=== PATIENT | female | born 1945 | race Caucasian/White ===

== ENCOUNTER 2017-02-17 10:56 | Outpatient (CLI) | payer MEDICARE, OTHER ==
--- NOTE | 2017-02-17 11:42 | XRAY Report ---
TWO-VIEW CHEST: 02/17/2017 CLINICAL INDICATION: Persistent cough. COMPARISON: 06/17/2015 FINDINGS: Frontal and lateral views of the chest demonstrate a normal cardiac silhouette. There are infiltrates in the right upper and middle lobes. No effusion or pneumothorax is present. IMPRESSION: RIGHT UPPER AND MIDDLE LOBE INFILTRATES. JOB #: [id number] EXT JOB #:[id number]
== END 2017-02-17 10:57 | disposition home or self-care (01) ==
LOC: DI 10:56
PROVIDERS: ATTEND Internal Medicine
DX: R91.8 Other nonspecific abnormal finding of lung field (principal)
CPT/HCPCS: 71020

== ENCOUNTER 2017-09-03 07:11 | Day surgery (SDC) | payer MEDICARE, OTHER ==
[2017-09-03] MEDS ORDERED: LACTATED RINGERS 1,000 ML IV ONE (07:22)
[2017-09-03] MEDS ORDERED: MIDAZOLAM 2 MG/2 ML VIAL IVP ONE (07:52)
[2017-09-03] MEDS ORDERED: fentaNYL 100 MCG/2 ML VIAL IVP ONE (07:52)
[2017-09-03 09:14] VITALS: BP 105/55
== END 2017-09-03 07:12 | disposition home or self-care (01) ==
LOC: SDS 07:11
PROVIDERS: ATTEND Surgery
PROC: 0DBP8ZX Excision of Rectum, Via Natural or Artificial Opening Endoscopic, Diagnostic (ICD-10-PCS; principal; 2017-09-03 08:15)
DX: Z12.11 Encounter for screening for malignant neoplasm of colon (principal); Z80.0 Family history of malignant neoplasm of digestive organs; K57.30 Diverticulosis of large intestine without perforation or abscess without bleeding; K62.9 Disease of anus and rectum, unspecified; K64.8 Other hemorrhoids; K21.9 Gastro-esophageal reflux disease without esophagitis
CPT/HCPCS: 45380; J7120

== ENCOUNTER 2018-01-13 08:41 | Outpatient (CLI) | payer MEDICARE, OTHER ==
[2018-01-13 09:34] LABS: VBG PH 7.363 (7.31-7.41)
[2018-01-13 10:03] LABS: THYROID STIMULATING HORMONE 2.08 uIU/mL (0.34-5.60)
== END 2018-01-13 08:42 | disposition home or self-care (01) ==
LOC: LAB 08:41
PROVIDERS: ATTEND Internal Medicine
DX: E03.9 Hypothyroidism, unspecified (principal); E83.52 Hypercalcemia; Z86.39 Personal history of other endocrine, nutritional and metabolic disease
CPT/HCPCS: 36415; 82330; 83970; 84443

== ENCOUNTER 2018-02-17 11:14 | Outpatient (CLI) | payer MEDICARE, OTHER ==
--- NOTE | 2018-02-17 11:53 | XRAY Report ---
Procedure Date: 02/17/2018 Accession Number: [id number] / [id number] Procedure: XR - Chest 2 View X-Ray CPT Code: 41214 FULL RESULT: EXAM: Chest 2 View X-Ray DATE: 02/17/2018 11:30 AM CLINICAL HISTORY: COUGH COMPARISON: 02/17/2017. TECHNIQUE: 2 views. FINDINGS: Lungs/Pleura: No focal opacities evident. Previously seen fluid in right horizontal fissure essentially has resolved. There is no pneumothorax or pleural effusion. Mediastinum: Heart and mediastinal contours are unremarkable. Other: None. IMPRESSION: Normal 2-view chest radiography. [facility]
== END 2018-02-17 11:15 | disposition home or self-care (01) ==
LOC: DI 11:14
PROVIDERS: ATTEND Internal Medicine
DX: R05 Cough (principal)
CPT/HCPCS: 71046

== ENCOUNTER 2018-08-25 15:21 | Outpatient (CLI) | payer MEDICARE, OTHER ==
--- NOTE | 2018-08-26 08:21 | Mammography Report ---
Reason: SCREENING MAMMO Procedure Date: 08/25/2018 Accession Number: [id number] / [id number] Procedure: DARRYL - Screening Mammo w/Pilo CPT Code: FULL RESULT: EXAM: Screening Mammo w/Pilo DATE: 08/25/2018 3:48 PM CLINICAL HISTORY: Screening encounter. No reported risk factors. TECHNIQUE: Bilateral CC and MLO views were obtained. COMPARISON: 07/10/2016 through 09/06/2010. FINDINGS: The breasts demonstrate diffuse fatty replacement bilaterally. No suspicious masses, clustered microcalcifications, or regions of architectural distortion are identified. IMPRESSION: Negative examination RECOMMENDATION: Routine annual screening unless otherwise clinically indicated. BIRADS CATEGORY 1: Negative STANDARD QUALIFYING STATEMENTS: 1. This examination was not reviewed with the aid of Computer-Aided Detection (CAD). 2. A negative or benign imaging report should not preclude biopsy if clinically suspicious findings are present. 3. Dense breasts may obscure an underlying neoplasm. 4. This examination was reviewed with the aid of 3D breast imaging (tomosynthesis).
== END 2018-08-25 15:22 | disposition home or self-care (01) ==
LOC: DI 15:21
PROVIDERS: ATTEND Internal Medicine
DX: Z12.31 Encounter for screening mammogram for malignant neoplasm of breast (principal)
CPT/HCPCS: 77063; 77067

== ENCOUNTER 2019-07-11 10:13 | Day surgery (SDC) | payer MEDICARE, OTHER ==
[2019-07-11] MEDS ORDERED: fentaNYL 250 MCG/5 ML VIAL IVP ONE (10:14)
[2019-07-11] MEDS ORDERED: MIDAZOLAM 2 MG/2 ML VIAL IVP ONE (10:14)
[2019-07-11] MEDS ORDERED: LACTATED RINGERS 1,000 ML IV ONE (10:35)
[2019-07-11] MEDS ORDERED: LIDO GARGLE 30 ML BOTTLE ONE (11:07)
[2019-07-11] MEDS ORDERED: LIDO GARGLE 30 ML BOTTLE PO ONE (11:59)
[2019-07-11 13:23] VITALS: BP 105/56
== END 2019-07-11 10:14 | disposition home or self-care (01) ==
LOC: SDS 10:13
PROVIDERS: ATTEND Internal Medicine Gastroenterology
PROC: 0DB78ZX Excision of Stomach, Pylorus, Via Natural or Artificial Opening Endoscopic, Diagnostic (ICD-10-PCS; 2019-07-11)
PROC: 0DB58ZX Excision of Esophagus, Via Natural or Artificial Opening Endoscopic, Diagnostic (ICD-10-PCS; principal; 2019-07-11 11:45)
DX: K21.0 Gastro-esophageal reflux disease with esophagitis (principal); K29.50 Unspecified chronic gastritis without bleeding; K44.9 Diaphragmatic hernia without obstruction or gangrene; Z79.899 Other long term (current) drug therapy; Z80.0 Family history of malignant neoplasm of digestive organs; Z79.82 Long term (current) use of aspirin; Z72.89 Other problems related to lifestyle
CPT/HCPCS: 43239; A9270; J3010; J7120

== ENCOUNTER 2020-01-26 21:52 | Outpatient (CLI) | payer MEDICARE, OTHER | END 2020-01-26 23:59 | disposition EMS.NT | LOC: EMS 21:52 | PROVIDERS: ATTEND Surgery | DX: R42 Dizziness and giddiness (principal) ==

== ENCOUNTER 2020-08-15 14:24 | Outpatient (CLI) | payer MEDICARE, OTHER ==
--- NOTE | 2020-08-15 16:31 | DEXA Report ---
PROCEDURE: Dexa Spine and/or Hip INDICATIONS: OSTEOPENIA TECHNIQUE: Dual energy x-ray absorptiometry (DXA) was performed on a [employer] System. Regions measur ed are the AP Spine, femoral neck, and if needed forearm. COMPARISON: Priors are not available for comparison secondary to different measuring techniques. FINDINGS: Lumbar Spine: Bone Mineral Density 1.044 g/cm/cm,T score -1.1, minimal osteopenia Left Hip: Bone Mineral Density 0.746 g/cm/cm,T score -2.1, moderate to severe osteopenia Left Femoral Neck: Bone Mineral Density 0.715 g/cm/cm, T score -2.3, severe osteopenia (T score greater or equal to -1.0: NORMAL) (T score from -1.1 to -2.4: OSTEOPENIA) (T score less than or equal to -2.5 to: OSTEOPOROSIS) Impression: Severe osteopenia within the left femoral neck. Patients with diagnosis of osteoporosis or osteopenia should have regular bone mineral density assess ment. For those eligible for Medicare, routine testing is allowed once every 2 years. Testing frequ ency can be increased for patients who have rapidly progressing disease or for those who are receivin g medical therapy to restore bone mass. Reviewed by: Giselle Hamilton MD on 08/15/2020 4:29 PM PST Approved by: Giselle Hamilton MD on 08/15/2020 4:29 PM PST Station ID: [id number]
== END 2020-08-15 14:25 | disposition home or self-care (01) ==
LOC: DI 14:24
PROVIDERS: ATTEND Internal Medicine
DX: M85.89 Other specified disorders of bone density and structure, multiple sites (principal)

== ENCOUNTER 2020-09-20 14:47 | Outpatient (CLI) | payer MEDICARE, OTHER ==
--- NOTE | 2020-09-21 13:00 | Mammography Report ---
BILATERAL DIGITAL SCREENING MAMMOGRAM 3D/2D: 09/20/2020 CLINICAL: Routine screening. Comparison is made to exams dated: 08/25/2018 mammogram, 07/10/2016 mammogram, 05/23/2014 mammogram, 09/29/2011 mammogram, 09/06/2010 mammogram, and 09/05/2009 mammogram - [facility]. The tissue of both breasts is predominantly fatty. No significant masses, calcifications, or other findings are seen in either breast. There has been no significant interval change. IMPRESSION: NEGATIVE There is no mammographic evidence of malignancy. A 1 year screening mammogram is recommended. This exam was interpreted at Station ID: [id number]. NOTE: For mammograms, a report in lay terms will be sent to the patient. Approximately 15% of breast malignancies will not be visualized mammographically. In the management of a palpable breast mass, a negative mammogram must not discourage biopsy of a clinically suspicious lesion. Electronically Signed By: Juan Diego Cardona acr/penrad:09/20/2020 17:09:28 ACR BI-RADS Category 1: Negative 3341F PARENCHYMAL PATTERN: (F) - The breast(s) demonstrate(s) diffuse fatty replacement. BI-RADS CATEGORY: (1) - 1 RECOMMENDATION: (ANNUAL) - Recommend routine annual screening mammography. [id number] 1 year screening LATERALITY: (B)
== END 2020-09-20 14:48 | disposition home or self-care (01) ==
LOC: DI 14:47
PROVIDERS: ATTEND Internal Medicine
DX: Z12.31 Encounter for screening mammogram for malignant neoplasm of breast (principal)

== ENCOUNTER 2021-08-26 08:00 | Outpatient (CLI) | payer MEDICARE, OTHER ==
[2021-08-26 16:52] LABS: BASOPHILS # (AUTO) 0.1 10^3/uL (0.0-0.1); BASOPHILS % (AUTO) 1.2 %; EOSINOPHILS # (AUTO) 0.1 10^3/uL (0.0-0.7); EOSINOPHILS % (AUTO) 1.4 %; HGB - HEMOGLOBIN 12.9 g/dL (12.0-16.0); LYMPHOCYTES # (AUTO) 1.1 10^3/uL (1.5-3.5); MEAN CORPUSCULAR HEMOGLOBIN 30.4 pg (27.0-31.0); MEAN CORPUSCULAR HGB CONC 33.1 g/dL (32.0-36.0); MEAN CORPUSCULAR VOLUME 91.8 fL (81.0-99.0); MEAN PLATELET VOLUME 10.4 fL (7.9-10.8); MONOCYTES # (AUTO) 0.4 10^3/uL (0.0-1.0); MONOCYTES % (AUTO) 7.5 %; NEUTROPHILS # (AUTO) 3.6 10^3/uL (1.5-6.6); NEUTROPHILS % (AUTO) 68.7 %; PLT - PLATELET COUNT 235 10^3/uL (130-450); RED BLOOD COUNT 4.25 10^6/uL (4.20-5.40); RED CELL DISTRIBUTION WIDTH 12.8 % (12.0-15.0); WHITE BLOOD COUNT 5.2 x10^3/uL (4.8-10.8)
[2021-08-26 17:07] LABS: ALBUMIN 3.9 g/dL (3.2-5.5); ALBUMIN/GLOBULIN RATIO 1.4 (1.0-2.2); ALKALINE PHOSPHATASE 59 IU/L (42-121); ALT ALANINE AMINOTRANSFERASE 13 IU/L (10-60); AST ASPARTATE AMINOTRANSFERASE 20 IU/L (10-42); BILIRUBIN,TOTAL 0.6 mg/dL (0.2-1.0); BUN - BLOOD UREA NITROGEN 17 mg/dL (6-20); CALCIUM 9.9 mg/dL (8.5-10.3); CARBON DIOXIDE - CO2 28 mmol/L (21-32); CHLORIDE 100 mmol/L (101-111); CHOLESTEROL 221 mg/dL; CREATININE 0.9 mg/dL (0.4-1.0); GFR - MDRD 61 (>89); GLUCOSE 102 mg/dL (70-100); HDL CHOLESTEROL 73 mg/dL; LDL CHOLESTEROL,CALCULATED 128 mg/dL; LDL/HDL RATIO 1.8 (<4.4); POTASSIUM 4.8 mmol/L (3.5-5.0); SODIUM 136 mmol/L (135-145); TOTAL PROTEIN 6.6 g/dL (6.7-8.2); TRIGLYCERIDES 100 mg/dL; VLDL CHOLESTEROL 20 mg/dL
[2021-08-26 17:19] LABS: THYROID STIMULATING HORMONE 3.12 uIU/mL (0.34-5.60)
[2021-08-26 17:20] LABS: FREE T3 3.02 pg/mL (2.5-3.9)
[2021-08-26 17:21] LABS: FREE T4 (FREE THYROXINE) 0.54 ng/dL (0.58-1.64)
[2021-08-26 19:12] LABS: ESTIMATED AVERAGE GLUCOSE 120 mg/dL (70-100); HEMOGLOBIN A1c% 5.8 % (4.27-6.07)
== END 2021-08-26 23:59 ==
LOC: LAB 08:00
PROVIDERS: ATTEND Internal Medicine
DX: Z00.00 Encounter for general adult medical examination without abnormal findings (principal); R10.9 Unspecified abdominal pain; F41.9 Anxiety disorder, unspecified; C44.310 Basal cell carcinoma of skin of unspecified parts of face; F32.A Depression, unspecified; Z80.0 Family history of malignant neoplasm of digestive organs; R53.83 Other fatigue; K21.9 Gastro-esophageal reflux disease without esophagitis; M25.559 Pain in unspecified hip; Z86.39 Personal history of other endocrine, nutritional and metabolic disease; E83.52 Hypercalcemia; E03.9 Hypothyroidism, unspecified; R73.01 Impaired fasting glucose; R42 Dizziness and giddiness; R41.3 Other amnesia; R25.2 Cramp and spasm; M85.80 Other specified disorders of bone density and structure, unspecified site; R00.2 Palpitations; J30.2 Other seasonal allergic rhinitis; M25.519 Pain in unspecified shoulder; R00.0 Tachycardia, unspecified; Z79.899 Other long term (current) drug therapy
CPT/HCPCS: 36415; 80053; 80061; 82306; 83036; 83721; 84439; 84443; 84481; 85025

== ENCOUNTER 2022-07-24 08:00 | Outpatient (CLI) | payer MEDICARE, OTHER ==
[2022-07-24 16:20] LABS: BASOPHILS # (AUTO) 0.1 10^3/uL (0.0-0.1); EOSINOPHILS # (AUTO) 0.2 10^3/uL (0.0-0.7); EOSINOPHILS % (AUTO) 3.7 %; HCT - HEMATOCRIT 39.7 % (37.0-47.0); HGB - HEMOGLOBIN 13.3 g/dL (12.0-16.0); LYMPHOCYTES # (AUTO) 0.8 10^3/uL (1.5-3.5); LYMPHOCYTES % (AUTO) 17.1 %; MEAN CORPUSCULAR HEMOGLOBIN 29.9 pg (27.0-31.0); MEAN CORPUSCULAR HGB CONC 33.5 g/dL (32.0-36.0); MEAN CORPUSCULAR VOLUME 89.2 fL (81.0-99.0); MEAN PLATELET VOLUME 9.4 fL (7.9-10.8); MONOCYTES # (AUTO) 0.6 10^3/uL (0.0-1.0); MONOCYTES % (AUTO) 11.5 %; NEUTROPHILS # (AUTO) 3.2 10^3/uL (1.5-6.6); NEUTROPHILS % (AUTO) 66.3 %; PLT - PLATELET COUNT 275 10^3/uL (130-450); RED BLOOD COUNT 4.45 10^6/uL (4.20-5.40); RED CELL DISTRIBUTION WIDTH 12.5 % (12.0-15.0); WHITE BLOOD COUNT 4.9 x10^3/uL (4.8-10.8)
[2022-07-24 16:32] LABS: ALBUMIN 4.1 g/dL (3.2-5.5); ALBUMIN/GLOBULIN RATIO 1.3 (1.0-2.2); BILIRUBIN,TOTAL 0.9 mg/dL (0.2-1.0); CALCIUM 10.2 mg/dL (8.5-10.3); CREATININE 0.9 mg/dL (0.4-1.0); POTASSIUM 4.1 mmol/L (3.5-5.0); TOTAL PROTEIN 7.3 g/dL (6.7-8.2)
[2022-07-24 16:46] LABS: THYROID STIMULATING HORMONE 4.24 uIU/mL (0.34-5.60)
[2022-07-24 16:48] LABS: FREE T4 (FREE THYROXINE) 0.56 ng/dL (0.58-1.64)
[2022-07-24 16:49] LABS: FREE T3 2.7 pg/mL (2.5-3.9)
== END 2022-07-24 23:59 | disposition home or self-care (01) ==
LOC: LAB.R 08:00
PROVIDERS: ATTEND Internal Medicine
DX: E03.9 Hypothyroidism, unspecified (principal); R10.9 Unspecified abdominal pain; R63.0 Anorexia; R05.3 Chronic cough; R06.09 Other forms of dyspnea; R53.83 Other fatigue
CPT/HCPCS: 80053; 82150; 82607; 83880; 84439; 84443; 84481; 85025

== ENCOUNTER 2022-08-05 13:36 | Outpatient (CLI) | payer MEDICARE, OTHER ==
--- NOTE | 2022-08-05 17:07 | XRAY Report ---
PROCEDURE: Chest 2 View X-Ray INDICATIONS: COUGH TECHNIQUE: 2 views of the chest were acquired. COMPARISON: Chest x-ray of 02/17/2019 FINDINGS: Surgical changes and devices: None. Lungs and pleura: No pleural effusions or pneumothorax. Lungs are clear. Mediastinum: Mediastinal contours are normal. Heart size is normal. Bones and chest wall: No suspicious bony abnormalities. Soft tissues appear unremarkable. IMPRESSION: No acute pulmonary process. Reviewed by: Giselle Hamilton MD on 08/05/2022 5:05 PM [facility] Approved by: Giselle Hamilton MD on 08/05/2022 5:05 PM [facility] Station ID: [id number]
== END 2022-08-05 13:37 | disposition home or self-care (01) ==
LOC: DI 13:36
PROVIDERS: ATTEND Internal Medicine
DX: R05.1 Acute cough (principal)

== ENCOUNTER 2022-08-21 15:40 | Outpatient (CLI) | payer MEDICARE, OTHER ==
--- NOTE | 2022-08-22 10:02 | Ultrasound Report ---
PROCEDURE: Head or Neck Soft Tissue INDICATIONS: THYROID NODULES TECHNIQUE: Real-time scanning was performed of the thyroid gland, with image documentation. COMPARISON: None FINDINGS: Right: Thyroid lobe measures 3.3 x 0.8 x 0.6 cm, and is homogeneous in echotexture. Left: Thyroid lobe measures 3.2 x 0.5 x 0.7 cm, and is homogenous in echotexture. Isthmus: 1 mm thick. No discrete thyroid nodule is seen. IMPRESSION: Small thyroid gland. No discrete thyroid nodule. No neck soft tissue lymphadenopathy. ACR TI-RADS definitions and recommendations: TI-RADS 1 (benign): 0 points. FNA not needed. TI-RADS 2 (not suspicious): 2 points. FNA not needed. TI-RADS 3 (mildly suspicious): 3 points. "FNA if 2.5 cm or larger, follow up if 1.5 cm or larger (at 1, 3, and 5 years). TI-RADS 4 (moderately suspicious): 4-6 points. "FNA if 1.5 cm or larger, follow up if 1 cm or larger (at 1, 2, 3, and 5 years). TI-RADS 5 (highly suspicious): 7 points or more. "FNA if 1 cm or larger, follow up if 0.5 cm or larger (every year for 5 years). Reviewed by: Alexis Gonzalez MD on 08/22/2022 10:01 AM PST Approved by: Alexis Gonzalez MD on 08/22/2022 10:01 AM PST Station ID: [id number]
== END 2022-08-21 15:41 | disposition home or self-care (01) ==
LOC: DI 15:40
PROVIDERS: ATTEND Internal Medicine
DX: E04.2 Nontoxic multinodular goiter (principal)

== ENCOUNTER 2022-09-19 13:45 | Outpatient (CLI) | payer MEDICARE, OTHER ==
--- NOTE | 2022-09-22 09:22 | Mammography Report ---
BILATERAL DIGITAL SCREENING MAMMOGRAM 3D/2D: 09/19/2022 CLINICAL: Routine screening. Comparison is made to exams dated: 09/20/2020 mammogram, 08/25/2018 mammogram, 07/10/2016 mammogram, a nd 05/23/2014 mammogram - [facility]. There are scattered areas of fibroglandular density in both breasts (category b / 25%-50% glandular t issue). No significant masses, calcifications, or other findings are seen in either breast. There has been no significant interval change. IMPRESSION: NEGATIVE There is no mammographic evidence of malignancy. A 1 year screening mammogram is recommended. Based on the Tyrer Cuzick model (a risk assessment model) the patients lifetime risk is 3.3% and her 10 year risk is 0.0%. According to the ACR, ACS, and NCCN guidelines, an annual breast MRI exam miriam g with mammogram is recommended if the patients lifetime risk is 20% or greater. This exam was interpreted at Station ID: [id number]. NOTE: For mammograms, a report in lay terms will be sent to the patient. Approximately 15% of breast malignancies will not be visualized mammographically. In the management of a palpable breast mass, a negative mammogram must not discourage biopsy of a clinically suspicious lesion. Electronically Signed By: Ger scott/tenzin:09/19/2022 18:32:27 letter sent: No_Letter ACR BI-RADS Category 1: Negative 3341F PARENCHYMAL PATTERN: (A) - The breast(s) demonstrate(s) scattered fibroglandular densities. BI-RADS CATEGORY: (1) - 1 RECOMMENDATION: (ANNUAL) - Recommend routine annual screening mammography. [id number] 1 year screening LATERALITY: (B)
== END 2022-09-19 13:46 | disposition home or self-care (01) ==
LOC: DI 13:45
PROVIDERS: ATTEND Internal Medicine
DX: Z12.31 Encounter for screening mammogram for malignant neoplasm of breast (principal)

== ENCOUNTER 2023-10-12 14:24 | Outpatient (CLI) | payer MEDICARE, OTHER ==
--- NOTE | 2023-10-12 14:58 | DEXA Report ---
PROCEDURE: Dexa Spine and/or Hip INDICATIONS: POST MENOPAUSAL TECHNIQUE: Dual energy x-ray absorptiometry (DXA) was performed on a [employer] System. Regions measur ed are the AP Spine, femoral neck, and if needed forearm. COMPARISON: DEXA 08/15/2020 FINDINGS: Lumbar Spine: Bone Mineral Density: 1.061 g/cm/cm,T score: -1.0, compared to -1.1. Left Femoral Neck: Bone Mineral Density: 0.683 g/cm/cm, T score: -2.6, compared to -2.3. Left Hip: Bone Mineral Density: 0.696 g/cm/cm,T score: -2.5, compared to -2.1. 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 Patients with diagnosis of osteoporosis or osteopenia should have regular bone mineral density assess ment. For those eligible for Medicare, routine testing is allowed once every 2 years. Testing frequ ency can be increased for patients who have rapidly progressing disease or for those who are receivin g medical therapy to restore bone mass. Reviewed by: Giselle Hamilton MD on 10/12/2023 2:57 PM PDT Approved by: Giselle Hamilton MD on 10/12/2023 2:57 PM PDT Station ID: [id number]
== END 2023-10-12 14:25 | disposition home or self-care (01) ==
LOC: DI 14:24
PROVIDERS: ATTEND Internal Medicine
DX: Z78.0 Asymptomatic menopausal state (principal); M81.0 Age-related osteoporosis without current pathological fracture

== ENCOUNTER 2025-06-09 02:49 | Inpatient (IN) ==
--- NOTE | 2025-06-09 03:03 | ED Physician Documentation ---
History of Present Illness Stated complaint Stated Complaint: PALPITATIONS Chief complaint Chief Complaint: Cardiac History obtained from History obtained from: Patient and EMS Additonal information Additional information: 80yF with pmh hypothyroidism, depression p/w 1 week of cough and progressive soa, found to have tachycardia to 180s by ems with concern for possible afib. she received 15mg iv cardizem in the field as well as 700 cc ivf prior to arrival. no fever, cp, n/v Meds/Allgy Home Medications Ambulatory Orders Medication Instructions Recorded Confirmed aspirin 81 mg chewable tablet 81 mg PO DAILY 06/17/15 07/08/19 citalopram 10 mg tablet 20 mg PO DAILY 06/17/1506/26 thyroid (pork) 180 mg tablet 180 mg PO DAILY 06/17/15 07/08/19 ([facility]) Allergies Allergies Allergy/AdvReac Type Severity Reaction Status Date / Time No Known Drug Allergies Allergy Verified 06/09/25 02:57 PFSH Active Problems All Active Problems (Updated 06/09/25 @ 05:05 by Edita Vee MD) Tachycardia (Acute) Hypoxia (Acute) Pneumonia (Acute) Sepsis (Acute) Pneumonia (Acute) Social History Social History Do you dip or chew tobacco?: No Do you feel safe in your home environment?: Yes History of physical, verbal, emotional, or financial abuse?: No ETOH Use: Frequency: Occasional POLST Patient has POLST: No Exam Exam Vital Signs: Vital Signs x48h Temp Pulse Resp BP Pulse Ox 06/09/25 04:27 83 103/41 L 92 06/09/25 04:12 86 117/47 L 91 L 06/09/25 03:57 84 121/50 L 92 06/09/25 02:52 37 C 86 21 119/49 L 94 Constitutional no apparent distress and average body habitus elderly appearing HENMT normocephalic, head/scalp atraumatic and oropharynx normal Eyes PERRL and EOMs intact bilaterally Neck/C-Spine visual inspection normal Chest inspection of chest normal Respiratory diminished breath sounds R lung base Cardiovascular normal heart rate noted and regular rhythm noted Gastrointestinal abdomen normal to inspection, abdomen soft to palpation and nontender to palpation Extremities normal to inspection Results Vitals Vitals: Vital Signs - 24 hr 06/09/25 02:52 06/09/25 03:57 06/09/25 04:12 Temperature 37 C Pulse Rate 86 84 86 Respiratory Rate 21 Blood Pressure 119/49 L 121/50 L 117/47 L O2 Saturation 94 92 91 L O2 Source Room air Pain Intensity 0 06/09/25 04:27 Temperature Pulse Rate 83 Respiratory Rate Blood Pressure 103/41 L O2 Saturation 92 O2 Source Room air Pain Intensity Oxygen O2 Source Room air EKG (time done) 0254: EKG releavant findings:: EKG personally interpreted by author of this note. Relevant findings are: Rate: Rate (enter#) (89) Rhythm: NSR and Other (PVCs) [place]: Normal Intervals: Normal MD QRS: QRS normal Ischemia: Normal ST segments Labs Labs: Laboratory Tests 06/09/25 03:08 WBC 9.7 RBC 3.77 L Hgb 11.3 L Hct 34.4 L MCV 91.2 MCH 30.0 MCHC 32.8 RDW 12.5 Plt Count 150 MPV 9.6 Neut # (Auto) 7.7 H Lymph # (Auto) 0.9 L Eddy # (Auto) 0.9 Eos # (Auto) 0.1 Baso # (Auto) 0.0 Absolute Nucleated RBC 0.00 Nucleated RBC % 0.0 Sodium 128 L Potassium 3.6 Chloride 97 L Carbon Dioxide 19 L Anion Gap 12.0 BUN 9 Creatinine 0.7 Estimated GFR (MDRD) 81 L Glucose 126 H Calcium 8.3 L Magnesium 1.6 L Total Bilirubin 0.6 AST 22 ALT 11 Alkaline Phosphatase 53 Total Protein 6.0 L Albumin 3.5 Globulin 2.5 Albumin/Globulin Ratio 1.4 Lipase < 10 L PD Medical Decision Making ED course ED course: 80yF p/w sepsis 2/2 RLL pneumonia, found to be hypoxic with borderline low blood pressures 103/41. 30cc / kg ivf bolus provided as well as empiric antibiotics. note that HR was 180s in the field and ems gave 15mg cardizem for possible new onset afib/aflutter. Prehospital rhythm strips have been uploaded to chart. EKG is nsr in the ED. d/w Dr. Ling for admission Discharge Plan Discharge Patient Disposition: [facility] DC/Xfer Condition: Fair Clinical Impression: Pneumonia, Hypoxia, Tachycardia Prescriptions: No Action citalopram 10 MG tablet 20 mg PO DAILY aspirin 81 MG tablet,chewable 81 mg PO DAILY thyroid (pork) [[facility]] 180 MG tablet 180 mg PO DAILY Print Language: [place]
[2025-06-09 03:13] LABS: HCT - HEMATOCRIT 34.4 % (37.0-47.0); HGB - HEMOGLOBIN 11.3 g/dL (12.0-16.0); MEAN PLATELET VOLUME 9.6 fL (7.9-10.8); NRBC ABSOLUTE COUNT (AUTO) 0.00 x10^3/uL; NUCLEATED RED BLOOD CELLS AUTO 0.0 /100WBC; PLT - PLATELET COUNT 150 10^3/uL (130-450); RED CELL DISTRIBUTION WIDTH 12.5 % (12.0-15.0)
[2025-06-09 03:30] LABS: ALT ALANINE AMINOTRANSFERASE 11 IU/L (10-60); AST ASPARTATE AMINOTRANSFERASE 22 IU/L (10-42); BUN - BLOOD UREA NITROGEN 9 mg/dL (6-20); CARBON DIOXIDE - CO2 19 mmol/L (21-32); CREATININE 0.7 mg/dL (0.6-1.3); GFR - MDRD 81 (>89)
[2025-06-09] MEDS ORDERED: cefTRIAXone 1 GM VIAL ONE (05:01)
[2025-06-09] MEDS: SODIUM CHLORIDE 0.9% 2,121 ML IV STA (05:21)
[2025-06-09] MEDS: AZITHROMYCIN INJ 500 MG in SODIUM CHLORIDE 0.9% 250 ML IV STA (05:24)
[2025-06-09] MEDS: cefTRIAXone 1 GM in SODIUM CHLORIDE 0.9% MINIBAG 100 ML IV STA (05:24)
[2025-06-09] MEDS: MAGNESIUM SULFATE 1 GM/2 ML VIAL IVP STA (05:40)
--- OUTSIDE RECORDS SUMMARY | 2025-06-09 05:43 | EXTERNAL MEDICAL SUMMARY RPT | Continuity of Care Document ---
Author Organization [facility] Address [address] [place] [id number] Phone Problems date description facility 2025-06-09 05:05 Sepsis, unspecified organism [facility] 2025-06-09 05:05 Pneumonia, unspecified organism [facility] Results/Labs test date facility value unit notes Result panel 1 LIPASE 2025-06-09 03:08 [facility] < 10 u/l As of January 2023 testing method has changed, this may include reference ranges. NUCLEATED RED BLOOD CELLS AUTO 2025-06-09 03:08 [facility] 0.0 /100wbc (missing) BASOPHILS # (AUTO) 2025-06-09 03:08 [facility] 0.0 10 3/ul (missing) NRBC ABSOLUTE COUNT (AUTO) 2025-06-09 03:08 [facility] 0.00 x10 3/ul (missing) EOSINOPHILS # (AUTO) 2025-06-09 03:08 [facility] 0.1 10 3/ul (missing) BILIRUBIN,TOTAL 2025-06-09 03:08 [facility] 0.6 mg /dl As of January 2023 testing method has changed, this may include reference ranges. CREATININE 2025-06-09 03:08 [facility] 0.7 mg/dl As of January 2023 testing method has changed, this may include reference ranges. MONOCYTES # (AUTO) 2025-06-09 03:08 [facility] 0.9 10 3/ul (missing) LYMPHOCYTES # (AUTO) 2025-06-09 03:08 [facility] 0.9 10 3/ul (missing) ALBUMIN/GLOBULIN RATIO 2025-06-09 03:08 [facility] 1.4 (missing) (missing) MAGNESIUM 2025-06-09 03:08 [facility] 1.6 mg/dl As of January 2023 testing method has changed, this may include reference ranges. ALT ALANINE AMINOTRANSFERASE 2025-06-09 03:08 [facility] 11 iu/l As of January 2023 testing method has changed, this may include reference ranges. HGB - HEMOGLOBIN 2025-06-09 03:08 [facility] 11.3 g /dl (missing) ANION GAP 2025-06-09 03:08 [facility] 12.0 (missing ) (missing) RED CELL DISTRIBUTION WIDTH 2025-06-09 03:08 [facility] 12.5 % (missing) GLUCOSE 2025-06-09 03:08 [facility] 126 mg/dl As of January 2023 testing method has changed, this may include reference ranges. SODIUM 2025-06-09 03:08 [facility] 128 mmol/l (missing) PLT - PLATELET COUNT 2025-06-09 03:08 [facility] 150 10 3/ul (missing) CARBON DIOXIDE - CO2 2025-06-09 03:08 [facility] 19 mmol/l As of January 2023 testing method has changed, this may include reference ranges. GLOBULIN 2025-06-09 03:08 [facility] 2.5 g/dl (missing) AST ASPARTATE AMINOTRANSFERASE 2025-06-09 03:08 [facility] 22 iu/l As of January 2023 testing method has changed, this may include reference ranges. ALBUMIN 2025-06-09 03:08 [facility] 3.5 g/dl As of January 2023 testing method has changed, this may include reference ranges. POTASSIUM 2025-06-09 03:08 [facility] 3.6 mmol/l As of January 2023 testing method has changed, this may include reference ranges. RED BLOOD COUNT 2025-06-09 03:08 [facility] 3.77 10 6/ul (missing) MEAN CORPUSCULAR HEMOGLOBIN 2025-06-09 03:08 [facility] 30.0 pg (missing) MEAN CORPUSCULAR HGB CONC 2025-06-09 03:08 [facility] 32.8 g/dl (missing) HCT - HEMATOCRIT 2025-06-09 03:08 [facility] 34.4 % (missing) ALKALINE PHOSPHATASE 2025-06-09 03:08 [facility] 53 iu/l As of January 2023 testing method has changed, this may include reference ranges. TOTAL PROTEIN 2025-06-09 03:08 [facility] 6.0 g/dl As of January 2023 testing method has changed, this may include reference ranges. NEUTROPHILS # (AUTO) 2025-06-09 03:08 [facility] 7.7 10 3/ul (missing) CALCIUM 2025-06-09 03:08 [facility] 8.3 mg/dl As of January 2023 testing method has changed, this may include reference ranges. GFR - MDRD 2025-06-09 03:08 [facility] 81 (dotty hunter) The IDMS-traceable MDRD Study Equation has been validated extensively in and populations between the ages of 18 and 70 with impaired kidney function (eGFR < 60 mL/min/1.73m2) and has shown good performance for patients with all common causes of kidney disease. Although this equation has not been validated for patients older than 70, an MDRD-derived eGFR may still be a useful tool for providers caring for patients older than 70. References: http://www.nkdep. nih.gov/lab-evalu ation/gfr/creatin ine-stand ardization, last updated September 2011. BUN - BLOOD UREA NITROGEN 2025-06-09 03:08 [facility] 9 mg/dl As of Jan testing method has changed, this may include reference ranges. MEAN PLATELET VOLUME 2025-06-09 03:08 [facility] 9.6 fl (missing) WHITE BLOOD COUNT 2025-06-09 03:08 [facility] 9.7 x10 3/ul (missing) MEAN CORPUSCULAR VOLUME 2025-06-09 03:08 [facility] 91.2 fl (missing) CHLORIDE 2025-06-09 03:08 [facility] 97 mmol/l As of January 2023 testing method has changed, this may include reference ranges. Social History date description facility
--- NOTE | 2025-06-09 05:45 | HISTORY & PHYSICAL EXAMINATION ---
Chief Complaint Chief Complaint Chief Complaint: shortness of breath History of Present Illness History Obtained From History obtained from: patient and Ed physician Exam Limitations: telemedicine History of Present Illness HPI Comment/Other: Mr. Hernandez is a 80yoFwith a history of hypothyroidism, anxiety and depression that presented to the ED with shortness of breath and heart palpatations. She explained that her symptoms started with a dry cough and fatigue 5 days prior to arrival. Her cough progressed to productive and her congestion worsened. She started to feel short of breath and then felt as if her heart was racing. When EMS arrived she was noted to be hypoxic in the 80s on RA. She was also tachycardic and there was concern for atrial arrythmia and she received a bolus of cardiazem. upon arrival to the ED she was in sinus with pvc. chest xray was consistent with pneumonia. she met sepsis criteria on presentation and received empiric antibiotics and fluid bolus. This visit was performed using telehealth tools, including phone and live-video. patient provided verbal consent to complete this telemedicine encounter. During the time my interview and evaluation, the patient was located at [facility] in the [facility], I was located in [place]. Review of Systems Status of ROS: 10 or more systems reviewed and unremarkable except as noted in history and below PFSH Active Problems All Active Problems (Updated 06/09/25 @ 05:36 by Julieta Nava MD) Anxiety with depression (Acute) Acute respiratory failure with hypoxia (Acute) Tachycardia (Acute) Hypoxia (Acute) Pneumonia (Acute) Sepsis (Acute) Pneumonia (Acute) Social History Social History Do you dip or chew tobacco?: No Do you feel safe in your home environment?: Yes History of physical, verbal, emotional, or financial abuse?: No ETOH Use: Frequency: Occasional POLST Patient has POLST: No Meds/Allgy Home Medications Ambulatory Orders Medication Instructions Recorded Confirmed aspirin 81 mg chewable tablet 81 mg PO DAILY 06/17/15 07/08/19 citalopram 10 mg tablet 20 mg PO DAILY 06/17/1506/26 thyroid (pork) 180 mg tablet 180 mg PO DAILY 06/17/15 07/08/19 ([facility]) Allergies Allergies Allergy/AdvReac Type Severity Reaction Status Date / Time No Known Drug Allergies Allergy Verified 06/09/25 02:57 Exam Exam Vital Signs: Vital Signs x48h Temp Pulse Resp BP Pulse Ox 06/09/25 04:27 83 103/41 L 92 06/09/25 04:12 86 117/47 L 91 L 06/09/25 03:57 84 121/50 L 92 06/09/25 02:52 37 C 86 21 119/49 L 94 Examination as recorded is based on patient and staff reported information as well as peripheral observation Constitutional normal general appearance and no apparent distress Respiratory breath sounds equal bilaterally and normal respiratory effort Cardiovascular normal heart rate noted and regular rhythm noted Psychiatry oriented x3 Skin skin color normal Sepsis Event Note (H) Evaluation Current Stage of Sepsis: Sepsis Possible source of Sepsis: positive Pulmonary Sepsis Criteria Sepsis Criteria: Recorded Respiratory Rate greater than 20 and Respiratory: Increasing oxygen requirements Conclusion/Plan Problem List (1) Pneumonia: Plan: chest xray reviewed: showing right lower lobe infiltrate consistent with pneumonia -will continue with empiric antibiotics: Rocephin and azithromycin. monitor for clinical response and toxicity -viral studies pending, sputum culture -incentive spirometry -duonebs -continue with supplemental oxygen and titrate as tolerated to baseline RA -trend VBG and chest xray as needed for optimized management (2) Sepsis: Plan: patient met sepsis on presentation: hypoxia, tachypnea, metabolic acidosis -management of acute infection as previously stated, tailor base on cultures and viral studies -continue with IVF -trend inflammatory marker to monitor progression of infection -monitor vitals and continuous telemetry (3) Acute respiratory failure with hypoxia: Plan: secondary to pneumonia and sepsis -continue with supplmental oxygen, titrate to baseline -duoneb -incentive spirometry (4) Anxiety with depression: Plan: home medication reviewed adn will resume as tolerated Plan Patient will be admitted to the hospitalist service under inpatient status. greater than 2 midnights expected for management. Lab Results Lab results reviewed: Yes 06/09/25 03:08 06/09/25 03:08 EKG Results EKG Interpreted Independently: Yes Core Measures Anticipated LOS I expect patient to be DC'd or transferred within 96 hours.: Yes DVT/VTE - Prophylaxis VTE/DVT Device ordered at admit?: Yes Telemedicine Consult Details Provider Location & Consult Time Telemedicine consultation conducted via videoconferencing?: Yes
[2025-06-09] MEDS ORDERED: MAGNESIUM SULFATE 2 GRAM 1 GM/25 ML BAG IV ONE (06:00)
[2025-06-09 07:02] LABS: INFLUENZA A- RESP PCR PANEL NOT DETECTED; INFLUENZA B - RESP PCR PANEL NOT DETECTED; RSV- RESP PCR PANEL NOT DETECTED; SARS-CoV-2 -RESP PCR PANEL NOT DETECTED
--- NOTE | 2025-06-09 07:21 | XRAY Report ---
PROCEDURE: XR Chest 1V INDICATIONS: Chest Pain TECHNIQUE: One view of the chest was acquired. COMPARISON: 08/05/2022 FINDINGS AND IMPRESSION: Right perihilar and lower lung opacities are seen, possibly infectious. No pleural effusions. Mild diffuse interstitial prominence, which may represent additional areas of infection versus edema. Consider future imaging surveillance to assess for resolution. Unchanged mediastinal contours and prominence of the hilar structures, probably vascular. Normal heart size. Degenerative osseous changes. No changes from the preliminary report. Reviewed by: Ovidio Yost MD on 06/09/2025 7:18 AM PST Approved by: Ovidio Yost MD on 06/09/2025 7:18 AM PST Station ID: [id number]
[2025-06-09] MEDS ORDERED: IPRATROPIUM/ALBUTEROL 3 ML NEB INH PRN (08:30)
[2025-06-09] MEDS ORDERED: ONDANSETRON ODT 4 MG TABLET TL PRN (08:30)
[2025-06-09] MEDS ORDERED: SODIUM CHLORIDE FLUSH 0.9% 10 ML SYRINGE IVP PRN (08:30)
[2025-06-09] MEDS ORDERED: CITALOPRAM HYDROBROMIDE 20 MG TABLET PO SCH (09:00)
[2025-06-09] MEDS ORDERED: THYROID 60 MG TABLET PO SCH (09:00)
[2025-06-09] MEDS: SODIUM CHLORIDE 0.9% 1,000 ML IV SCH (09:46)
[2025-06-09] MEDS: MAGNESIUM SULFATE 2 GRAM 2 GM/50 ML BAG IV ONE (09:46)
[2025-06-09] MEDS: ASPIRIN CHEW 81 MG TABLET PO SCH (09:47)
[2025-06-09] MEDS: HEPARIN 5,000 UNIT/ML VIAL SUBQ SCH (09:51)
[2025-06-09] MEDS: SODIUM CHLORIDE FLUSH 0.9% 10 ML SYRINGE IVP SCH (09:56)
[2025-06-09] MEDS: ACETAMINOPHEN 325 MG TABLET PO PRN (10:26)
--- NOTE | 2025-06-09 14:13 | PROVIDER PROGRESS NOTE ---
Subjective Prog Note Date Prog Note Date: 06/09/25 Prog Note Time: 14:04 Subjective Subjective: Patient was just admitted early part of this morning. No acute events since admission. She is doing reasonably well. This afternoon when I see her, she says she is starting to feel some improvement. She still has some malaise, fatigue. She feels like her breathing is better. Her cough is improving. She has a productive cough that is been going on for the last couple of days. She said no fevers or chills. No diarrhea. Current Medications Current Medications Current Medications: Current Medications Generic Name Dose Route Start Last Admin Trade Name Freq PRN Reason Stop Dose Admin Acetaminophen 650 mg 06/09/25 08:30 06/09/25 10:26 Acetaminophen 325 Mg Tablet PO 650 mg Q4HR PRN Administration Pain 1 to 4, or Fever Albuterol/Ipratropium 3 ml 06/09/25 08:30 Ipratropium/Albuterol 3 Ml Neb INH Q4HR PRN Wheezing Escitalopram Oxalate 10 mg 06/10/25 09:00 Escitalopram 10 Mg Tablet PO DAILY INDIO Guaifenesin 600 mg 06/09/25 14:00 Guaifenesin 600 Mg Tablet PO BID INDIO Heparin Sodium (Porcine) 5,000 unit 06/09/25 09:00 06/09/25 09:51 Heparin 5,000 Unit/Ml Vial SUBQ 5,000 unit BID INDIO Administration Azithromycin 500 mg/ Sodium 250 mls @ 250 mls/hr 06/10/25 09:00 Chloride IV DAILY INDIO Ceftriaxone Sodium 1 gm/ 100 mls @ 200 mls/hr 06/10/25 09:00 Sodium Chloride IV DAILY INDIO Sodium Chloride 1,000 mls @ 100 mls/hr 06/09/25 08:30 06/09/25 09:46 Normal Saline 0.9% IV 06/09/25 18:29 100 mls/hr .Q10H INDIO Administration Levothyroxine Sodium 75 mcg 06/10/25 07:00 Levothyroxine 75 Mcg Tablet PO DAILY INDIO Ondansetron HCl 4 mg 06/09/25 08:30 Ondansetron Odt 4 Mg Tablet TL Q6HR PRN Nausea / Vomiting Pantoprazole Sodium 40 mg 06/09/25 15:00 Pantoprazole 40 Mg Tablet PO QDAC INDIO Sodium Chloride 10 ml 06/09/25 08:30 Sodium Chloride Flush 0.9% 10 Ml Syringe IVP PRN PRN NEEDED PER PROVIDER ORDERS Sodium Chloride 10 ml 06/09/25 09:00 06/09/25 09:56 Sodium Chloride Flush 0.9% 10 Ml Syringe IVP 10 ml 0100,0900,1700 INDIO Administration Objective Vital Signs/Intake & Output Reviewed Vital Signs: Yes Vital Signs: Vital Signs x48h Temp Pulse Pulse Pulse Resp BP BP 06/09/25 13:00 36.7 C 76 24 118/56 L 06/09/25 08:07 36.5 C 92 18 137/75 H 06/09/25 06:10 36.6 C 84 14 109/49 L 06/09/25 06:08 37.4 C 84 20 106/43 L Pulse Ox O2 Flow Rate 06/09/25 13:00 98 2 06/09/25 08:07 98 2 06/09/25 06:10 96 2 06/09/25 06:08 95 2 Intake & Output: Intake & Output 06/06/25 06/07/25 06/08/25 06/09/25 23:59 23:59 23:59 23:59 Intake Total 3041 / 3041 Balance 3041 / 3041 Weight (kg) 70.7 kg Objective Comments/Other: GEN: No acute distress HEENT: NC/AT, normal appearance of external ears and nose. Hearing baseline. Cardiac: Regular rate and rhythm. 1 skipped beat, suspect PVC. Early systolic ejection murmur along left sternal border. 3/6 Pulm: No wheezing. Coarse lung sounds in the right inferior lung deleon. A wet but nonproductive cough. Abdomen: Soft, nontender, nondistended. No rebound or guarding Extremities: Moves all 4 extremities equally. Normal tone. Neuro: Face symmetric, CN II through XII intact grossly. Gait exam deferred Psych: Mood euthymic. Affect congruent. Pleasant. Lab Results 06/09/25 03:08 06/09/25 03:08 Other Labs: Lab Results x24hrs 06/09/25 06/09/25 06/09/25 Range/Units 05:57 05:24 03:08 WBC 9.7 (4.8-10.8) x10^3/uL RBC 3.77 L (4.20-5.40) 10^6/uL Hgb 11.3 L (12.0-16.0) g/dL Hct 34.4 L (37.0-47.0) % MCV 91.2 (81.0-99.0) fL MCH 30.0 (27.0-31.0) pg MCHC 32.8 (32.0-36.0) g/dL RDW 12.5 (12.0-15.0) % Plt Count 150 (130-450) 10^3/uL MPV 9.6 (7.9-10.8) fL Neut # (Auto) 7.7 H (1.5-6.6) 10^3/uL Lymph # (Auto) 0.9 L (1.5-3.5) 10^3/uL Valley # (Auto) 0.9 (0.0-1.0) 10^3/uL Eos # (Auto) 0.1 (0.0-0.7) 10^3/uL Baso # (Auto) 0.0 (0.0-0.1) 10^3/uL Absolute Nucleated RBC 0.00 x10^3/uL Nucleated RBC % 0.0 /100WBC Sodium 128 L (135-145) mmol/L Potassium 3.6 (3.5-4.5) mmol/L Chloride 97 L (101-111) mmol/L Carbon Dioxide 19 L (21-32) mmol/L Anion Gap 12.0 (6-13) BUN 9 (6-20) mg/dL Creatinine 0.7 (0.6-1.3) mg/dL Estimated GFR (MDRD) 81 L (>89) Glucose 126 H (74-104) mg/dL Lactic Acid 0.8 (0.5-2.2) mmol/L Calcium 8.3 L (8.5-10.3) mg/dL Magnesium 1.6 L (1.7-2.3) mg/dL Total Bilirubin 0.6 (0.2-1.0) mg/dL AST 22 (10-42) IU/L ALT 11 (10-60) IU/L Alkaline Phosphatase 53 (42-121) IU/L Total Protein 6.0 L (6.4-8.9) g/dL Albumin 3.5 (3.2-5.5) g/dL Globulin 2.5 (2.1-4.2) g/dL Albumin/Globulin Ratio 1.4 (1.0-2.2) Lipase < 10 L (11-82) U/L Nasal Influenza B PCR NOT DETECTED Nasal Influenza A PCR NOT DETECTED Nasal RSV (PCR) NOT DETECTED Nasal SARS-CoV-2 (PCR) NOT DETECTED Sepsis Event Note (H) Evaluation Current Stage of Sepsis: Sepsis Possible source of Sepsis: positive Pulmonary Sepsis Criteria Sepsis Criteria: Recorded Respiratory Rate greater than 20 and Respiratory: Increasing oxygen requirements Assessment/Plan Problem List (1) Pneumonia: Qualifiers: Pneumonia type: due to unspecified organism Laterality: right Lung location: lower lobe of lung Qualified Code(s): J18.9 - Pneumonia, unspecified organism (2) Sepsis: (3) Acute respiratory failure with hypoxia: Impression: Sepsis is now resolved. Weaning oxygen. Patient presenting with cough and dyspnea. Hypoxic respiratory failure as below. She is continue to improve on antibiotics. Satting high 90s on 2 L. She continues to have a coarse cough. This has been going on for the days preceding her admission. Her vital signs are now normalized other than her oxygen requirement. - Continue ceftriaxone and azithromycin - Blood cultures NGTD - Likely treat empirically for 5 days with cephalosporin given good improvement so far - Trend CBC a.m. - Guaifenesin for secretion clearance - Pulmonary toileting. May need Acapella - Will run out this bag of fluids and then stop. Patient is eating and drinking. (4) Anxiety with depression: Impression: Longstanding history. Patient is on escitalopram at home. Continued here. (5) Hypothyroidism: Impression: Per history. She has been continued on her 75 mcg daily dose of levothyroxine. Reportedly gets labs checked in the community. Last TSH on record is 4.2. No sonja symptoms of hyper or hypothyroidism. Qualifiers: Hypothyroidism type: acquired Qualified Code(s): E03.9 - Hypothyroidism, unspecified (6) GERD (gastroesophageal reflux disease): Impression: Per history. She is on omeprazole 20 mg p.o. daily prescribed by physician. Will continue on formulary equivalent PPI. Symptoms well-controlled. (7) Osteoporosis: Impression: Patient is on alendronate prior to arrival. Unclear when her last dose was, but will hold while she is in the hospital. Can resume when she is back home. She has been on this for several months.
[2025-06-09] MEDS: PANTOPRAZOLE 40 MG TABLET PO SCH (14:17)
--- NOTE | 2025-06-09 14:32 | PHARMACY PROGRESS NOTE ---
Best Possible Medication History Admit Date and Time: 06/09/25 0459 Home Medications Medication Instructions Recorded Confirmed Type alendronate 70 mg tablet 70 mg PO Q7D 06/09/25 History escitalopram oxalate 10 mg tablet 10 mg PO DAILY 06/0906/09/25 History levothyroxine 75 mcg tablet 37.5 mcg PO DAILY 06/09/25 06/09/25 History (Synthroid) levothyroxine 75 mcg tablet 75 mcg PO DAILY 06/09/25 1 08/09/24 History (Synthroid) omeprazole 20 mg capsule,delayed 20 mg PO DAILY 06/09/25 History release Medications reviewed in ED?: Yes Medication History completed: Yes Patient Interview: Completed Secondary Source(s): Insurance records [facility] Statement: As the person ultimately responsible for medication therapy, providers are able to order a medication from an existing home medication list in [facility] via the "Reconcile Routine" prior to Confirmation of that medication by print support specialist. Such practice is discouraged except when the physician, in their clinical judgment, deems that a medical need exists for a medication without regard to previous use.
[2025-06-10 06:47] LABS: HCT - HEMATOCRIT 30.4 % (37.0-47.0); HGB - HEMOGLOBIN 9.7 g/dL (12.0-16.0); MEAN PLATELET VOLUME 10.1 fL (7.9-10.8); NRBC ABSOLUTE COUNT (AUTO) 0.00 x10^3/uL; NUCLEATED RED BLOOD CELLS AUTO 0.0 /100WBC; PLT - PLATELET COUNT 155 10^3/uL (130-450); RED CELL DISTRIBUTION WIDTH 13.1 % (12.0-15.0)
[2025-06-10 07:16] LABS: ALT ALANINE AMINOTRANSFERASE 11.0 IU/L (10-60); AST ASPARTATE AMINOTRANSFERASE 17.0 IU/L (10-42); BUN - BLOOD UREA NITROGEN 5.0 mg/dL (6-20); CARBON DIOXIDE - CO2 22.0 mmol/L (21-32); CREATININE 0.6 mg/dL (0.6-1.3); GFR - MDRD 96.0 (>89)
[2025-06-10 07:43] VITALS: O2SAT 96
[2025-06-10] MEDS: LEVOTHYROXINE 75 MCG TABLET PO SCH (08:08)
[2025-06-10] MEDS: AZITHROMYCIN INJ 500 MG in SODIUM CHLORIDE 0.9% 250 ML IV SCH (08:29)
[2025-06-10] MEDS: ESCITALOPRAM 10 MG TABLET PO SCH (08:31)
[2025-06-10] MEDS: cefTRIAXone 1 GM in SODIUM CHLORIDE 0.9% MINIBAG 100 ML IV SCH (08:32)
[2025-06-10] MEDS ORDERED: cefTRIAXone 1 GM VIAL IVP SCH (09:00)
--- NOTE | 2025-06-10 09:12 | Discharge Summary ---
"Discharge Summary Admit Date: 06/09/25 Discharge Date: 06/10/25 Discharging Provider: Fish Linton Primary Care Provider: Lyn Noble Code Status: Attempt Resuscitation Discharge Facility Name: Home DIAGNOSES Discharge Diagnoses with Status of Each Condition: ## Pneumonia, improving ## Sepsis, resolved ## Acute respiratory failure with hypoxia, resolved Patient presenting with cough and dyspnea. Hypoxic respiratory failure, Initially requiring 2 L of oxygen. She was weaned back to room air on day of discharge. She was able to ambulate with RT without significant desaturation. She has been satting in the mid 90s on room air. She continues to have a coarse cough, she has been expectorating more since starting on guaifenesin. Initially tachycardic, tachypneic with acute hypoxemic respiratory failure and findings of a right lower field consolidation suggestive of pneumonia. Viral respiratory panel was negative. Sputum culture was not obtained. She was treated with ceftriaxone and azithromycin for her 2 days in the hospital. She will complete 1 additional day of macrolide as well as 3 additional days of cefpodoxime 200 mg p.o. twice daily - Prescribed azithromycin 500 mg x 1, cefpodoxime 200 mg twice daily x 3 days - Guaifenesin for secretion clearance For the next 3 days - Suspect she will have some postacute cough ongoing, Tessalon when she is done with antibiotics - Sending home with IS ## Anemia Patient presented with a hemoglobin of 11.3. This did drop somewhat to 9.7 on her second day of hospitalization. She has no signs of acute bleeding. She is been sick for a few days and suspect this may be some myelosuppression in the setting of her acute illness. - Recommend follow-up CBC in the next 1 to 2 weeks. ## Anxiety with depression, stable chronic Longstanding history. Patient is on escitalopram at home. Continued here. ## Hypothyroidism, stable chronic Continued on her home regimen of levothyroxine which is 75 mcg daily, 37.5 mcg on Thursday and Thursday. This is a total dose of 450 mcg weekly. Could consider 62.5 mcg daily or 150 mcg MWF, she has some trouble with splitting the 75 mcg tablet - No changes made to her home regimen at this time ## GERD (gastroesophageal reflux disease), stable chronic Per history. She is on omeprazole 20 mg p.o. daily prescribed by physician. Will continue on formulary equivalent PPI. Symptoms well-controlled. ## Osteoporosis, stable chronic Patient is on alendronate prior to arrival. Held while she is in the hospital. Can resume when she is back home. HPI History of Present Illness: Per Dr. Nava on 06/09: Ms. Hernandez is a 80yoFwith a history of hypothyroidism, anxiety and depression that presented to the ED with shortness of breath and heart palpatations. She explained that her symptoms started with a dry cough and fatigue 5 days prior to arrival. Her cough progressed to productive and her congestion worsened. She started to feel short of breath and then felt as if her heart was racing. When EMS arrived she was noted to be hypoxic in the 80s on RA. She was also tachycardic and there was concern for atrial arrythmia and she received a bolus of cardiazem. upon arrival to the ED she was in sinus with pvc. chest xray was consistent with pneumonia. she met sepsis criteria on presentation and received empiric antibiotics and fluid bolus. This visit was performed using telehealth tools, including phone and live-video. patient provided verbal consent to complete this telemedicine encounter. During the time my interview and evaluation, the patient was located at [facility] in the [facility], I was located in [place]. CONSULTS | PROCEDURES Consultations: RT Procedures: CXR 06/09 HOSPITAL COURSE Hospital Course: Patient was admitted with community-acquired pneumonia. She did not have a leukocytosis. She presented with hypoxemia, tachycardia, tachypnea and findings of focal consolidation in her right lower lobe. She has been having cough for several days prior to admission. She was started on empiric therapy with ceftriaxone and azithromycin. She improved subjectively within hours of starting this treatment. She had a coarse but nonproductive cough, she was started on expectorants with guaifenesin scheduled. This helped her mobilize secretions, and she has been coughing up more secretion. She was able to wean to room air on day of discharge. She was able to walk with respiratory therapy without significant desaturation. Patient to discharge with cefpodoxime 200 mg twice daily for 3 more days as well as 1 additional day of macrolide therapy. Will continue guaifenesin while she is on antibiotics. Also prescribing some benzonatate to use if she has some postinfectious cough. Hemoglobin dropped from 11.3-9.7 over her day of admission. This may just be within the margin of error for the lab. She should have CBC in 1 to 2 weeks to follow-up on establish her baseline. No evidence of active bleeding. ALLERGIES Allergies Allergy/AdvReac Type Severity Reaction Status Date / Time No Known Drug Allergies Allergy Verified 06/09/25 02:57 MEDICATIONS Ambulatory Orders Medication Instructions Recorded Confirmed alendronate 70 mg tablet 70 mg PO Q7D 06/09/25 escitalopram oxalate 10 mg tablet 10 mg PO DAILY 06/0906/09/25 levothyroxine 75 mcg tablet 37.5 mcg PO DAILY 06/09/25 06/09/25 (Synthroid) levothyroxine 75 mcg tablet 75 mcg PO DAILY 06/09/25 1 08/09/24 (Synthroid) omeprazole 20 mg capsule,delayed 20 mg PO DAILY 06/09/25 release azithromycin 500 mg tablet 500 mg PO DAILY 1 day #1 ta b 06/10/25 cefpodoxime 200 mg tablet 200 mg PO BID 3 days #6 tabs 06/10/25 guaifenesin 600 mg tablet, 600 mg PO BID PRN cough #30 tabs 06/10/25 extended release 12 hr (Mucinex) PHYSICAL EXAM AT DISCHARGE Vital Signs: Vital Signs x48h Temp Pulse Resp BP Pulse Ox 06/10/25 12:05 36.6 C 88 20 130/64 96 GEN: No acute distress HEENT: NC/AT, normal appearance of external ears and nose. Hearing baseline. Cardiac: Regular rate and rhythm. Early systolic ejection murmur along left sternal border. 3/6 Pulm: No wheezing. Some coarse crackles in the right middle to inferior lung deleon. Productive cough. Abdomen: Soft, nontender, nondistended. No rebound or guarding Extremities: Moves all 4 extremities equally. Normal tone. Neuro: Face symmetric, CN II through XII intact grossly. Gait exam deferred Psych: Mood euthymic. Affect congruent. Pleasant. LABS 06/10/25 06:32 06/10/25 06:32 Other Lab Results: Blood cultures drawn on 06/09 are NGTD. Will continue to be monitored through 06/14. DIAGNOSTIC IMAGING Diagnostic Imaging Results: Final report reviewed and Read independently Diagnostic Imaging Results Comments: Chest x-ray from 06/09 reveals a right perihilar and lower lung opacities favoring pneumonia given her presentation. There is mild interstitial prominence. No cardiomegaly. SEPSIS Current Stage of Sepsis: Sepsis Possible source of Sepsis: Pulmonary Sepsis Criteria: Recorded Heart Rate greater than 90 bpm, Recorded Respiratory Rate greater than 20 and Respiratory: Increasing oxygen requirements FOLLOW UP Follow Up: Follow-up with PCP in the next 1 to 2 weeks, check CBC as above TIME SPENT Time Spent in Discharge (Minutes): 37 Discharge Plan Discharge Patient Disposition: 01 Home, Self Care Condition: Stable Medically Cleared Date:: 06/10/25 Prescriptions: New guaifenesin [Mucinex] 600 mg Tablet Extended Release 12hr 600 mg PO BID PRN (Reason: cough) Qty: 30 0RF Rx Instructions: Take scheduled for next 3 days then as needed azithromycin 500 mg tablet 500 mg PO DAILY 1 Days Qty: 1 0RF Rx Instructions: Take on AM of 06/11 cefpodoxime 200 mg tablet 200 mg PO BID 3 Days Qty: 6 0RF Rx Instructions: Start on 06/11. Must administer with a meal/food Continued alendronate 70 mg tablet 70 mg PO Q7D Patient Comments: takes on sundays or mondays escitalopram oxalate 10 mg tablet 10 mg PO DAILY Patient Comments: TAKE 1 TABLET BY MOUTH DAILY levothyroxine [Synthroid] 75 mcg tablet 75 mcg PO DAILY Patient Comments: TAKE 1 TABLET BY MOUTH DAILY IN THE MORNING ON AN EMPTY STOMACH THURSDAY-THURSDAY (USES NAME BRAND SYNTHROID) omeprazole 20 mg capsule,delayed release(DR/EC) 20 mg PO DAILY Patient Comments: TAKE 1 CAPSULE EVERY MORNING 30 MINUTES BEFORE MORNING MEAL levothyroxine [Synthroid] 75 mcg tablet 37.5 mcg PO DAILY Rx Instructions: THURSDAY AND THURSDAY Activity Restrictions: No Restrictions Diet: Regular Health Concerns: You are being discharged with treatment for pneumonia. Pneumonia is an infection of your lungs. You are being treated for 5 days with the antibiotics. You received 2 doses of IV antibiotics while in the hospital. Starting on 06/11 you will complete an additional 3 days of antibiotics. You are also being prescribed an additional antibiotic azithromycin which we only need to take for a total of 3 days, i.e. only 1 dose needed on the day after you leave the hospital. Please follow these instructions carefully to help you recover safely: Medications: * Cefpodoxime: Take 200 mg by mouth every 12 hours with food, as prescribed. Finish the entire course, even if you start feeling better. Stopping early can lead to treatment failure or antibiotic resistance. * Azithromycin: Take 500 mg by mouth on the first day Side Effects and When to Call: Antibiotics: Diarrhea is common. If you develop severe, watery, or bloody stools, or abdominal pain and fever, contact your provider immediately. General Care: * Rest and drink plenty of fluids. * Use cough and deep breathing exercises to help clear your lungs. * Avoid smoking and exposure to secondhand smoke. Follow-Up: Schedule a follow-up visit with your primary care provider within 1-2 weeks. A chest X-ray is only needed if symptoms persist or if you are at risk for lung cancer (e.g., history of smoking). Call your provider or go to the emergency room if you experience: * Worsening shortness of breath * High fever not improving after 3 days of antibiotics * Confusion or difficulty waking up Take all medications exactly as prescribed and do not skip doses. If you have any questions or concerns, contact your healthcare provider. Print Language: Irish Patient Instructions: Cefpodoxime, Treating Pneumonia Follow-up Care: LYN NOBLE APRN [Primary Care Provider, Family Practice] Vitals documented within 30 minutes of discharge?: Yes"
[2025-06-10] MEDS ORDERED: LEVOTHYROXINE 75 MCG TABLET PO SCH (09:38)
[2025-06-10 12:07] VITALS: BP 130/64; TEMP 97.9
== END 2025-06-10 12:11 | disposition home or self-care (01) | DRG 871 ==
LOC: ED 02:49 → MS3 04:59 → SUATTDRO 04:59 → MS3 06:08
PROVIDERS: ADMIT Hospitalist; ATTEND Student in an Organized Health Care Education/Training Program